=== PATIENT | male | born 1945 | race Caucasian/White ===

== ENCOUNTER → 2017-12-09 | Outpatient (CLI) | payer MEDICARE ==
[~2017-12-09] MED LIST: AEC81 PO; AMIO200T44 PO; APIX5TAB PO; ATOR40TA69 PO; DIPH25 PO; FURO20TA6 PO; METF750T2 PO; METO50 PO; TRAM50TA4 PO
== END | disposition home or self-care (01) ==
LOC: SHCH 14:12
PROVIDERS: ATTEND Internal Medicine Cardiovascular Disease
DX: I50.9 Heart failure, unspecified (principal); I08.0 Rheumatic disorders of both mitral and aortic valves; Z95.1 Presence of aortocoronary bypass graft
CPT/HCPCS: 93306